=== PATIENT | female | born 1970 | race Caucasian/White ===

== ENCOUNTER 2024-09-15 19:48 | Emergency (ER) | payer MEDICARE, OTHER, SELFPAY ==
[2024-09-15 19:51] VITALS: BP 213/111
--- NOTE | 2024-09-15 21:27 | ED.GENMED ---
History of Present Illness
General
Chief Complaint: Fall
Source: family
Exam Limitations: developmental stage
Time Seen by Provider: 09/15/24 20:37
Nursing documentation reviewed up to this point in time: agreed with
History of Present Illness
History of Present Illness:
pt is a 53 y/o F
h/o developmental delay
fall today around 730 pm when in the bathtub and hit her head
witnessed by mom
has a large bump posterior scalp
inc in agitation from baseline
pt yelling/calling out
had ativan by mom at home [employer]
pt is pacing inthe room, hits her head and bites her hand
Past History
Past History
ED Past Medical History: Other (seizures, developmental delay)
Social History
Tobacco: Non-smoker
Review of Systems
Review of Systems
Allergies reviewed?: Yes
Unable to obtain full review of systems at this time due to: other (dev delay)
All Other Systems: Not applicable
Phy Exam
Physical Exam
Physical Exam:
GENERAL: awake, alert, pacing, calling out; developmental delay
hitting her head with her hand, biting Right hand
HEAD: large hematoma R posterior scalp
NECK: no midline tenderness, active ROM intact, no paraspinal muscle tenderness;
EYE: pupils equal and reactive, EOMs intact.
ENT: o/p clr, mmm. no hemotympanum
CARDIAC: Regular rate and rhythm, no edema
LUNGS: Clear breath sounds bilaterally, no acute respiratory distress, no wheezes/rales/rhonchi
ABDOMEN: Soft, without focal tenderness, no r/g, no cvat
NEUROLOGICAL: Alert and oriented, no focal neuro deficits, CN intact, 5/5 strength, sensation intact
SKIN: Warm and dry,
MUSCULOSKELETAL: No edema, well perfused.
PSYCH: Normal and appropriate interaction.
Course
Orders/Labs/Results
Orders:
Orders
09/15/24 21:29
CT Head W/o Iv Contrast Urgent
Comment:
Reason For Exam: hematoma, fall, dev delay
09/15/24 21:31
Lorazepam [Ativan] 2 mg IM NOW STA
Vital Signs
Initial and Last Documented VS:
Initial Vital Signs
Pulse Resp BP Pulse Ox
112 16 213/111 98
09/15/24 19:51 09/15/24 19:51 09/15/24 19:51 09/15/24 19:51
Last Documented Vital Signs
Pulse Resp BP Pulse Ox
105 21 173/85 98
09/15/24 22:07 09/15/24 22:07 09/15/24 22:07 09/15/24 19:51
MDM/Problems Addressed
Differential Diagnosis Includes:
head injury, ich, subdural
MDM/Problems Addressed:
53 y/o F
dev delay
here with hematoma posterior scalp after witnessed fall in shower
slightly more agitaated than normal according to mom
no LOC
no vomiting
hematoma R posterior scalp
moving neck normally
givne her severe MR, pt requires sedation for the CT scan
risk/benefit d/w mom
ativan given which did help calm her to receive the scan which wa sneg
d/c home
*Critical Care Note
Total Time (30-74mins, 75-104mins- exclusive of procedures): Not Applicable
ED Attending Note
-
Portions of this chart may have been created with voice recognition software.� Occasional wrong word or��sound alike� substitutions may have occurred due to the inherent limitations of voice recognition software.
Discharge Plan
Departure
Patient Disposition: Home (Routine Discharge)
Date of Disposition: 09/15/24
Time of Disposition: 23:08
Patient with high blood pressure during this ER visit?: Yes
Condition: Fair
Covid-19: Not Applicable
Discharge Problem:
Head injury, Hematoma
Instructions: Head Injury in Adults (DC), Contusion (DC)
Referrals:
Efra Culver DO [Family Provider] -
Activity Restrictions/Additional Instructions:
KAYLA HAD A NEGATIVE CAT SCAN
SHE LIKELY HAS A MINOR HEAD INJURY OR A CONCUSSION
TYLENOL NEEDED FOR HEADACHE OR PAIN
RETURN FOR ANY CONCERNS: CONFUSION, VOMITING, ETC.
Interventions
Interventions:
*Risk Screen - Suicide Last Done: 09/15/24 19:54
*General Assessment Last Done: 09/15/24 21:14
*Neglect/Abuse Screening Last Done: 09/15/24 19:54
*ED COVID-19 Vaccine History Last Done: 09/15/24 21:14
*Nursing Disposition Last Done: 09/15/24 23:21
ED-Musculoskeletal Assessment Last Done: 09/15/24 21:14
ED- Neurological Assessment Last Done: 09/15/24 21:14
ED-Skin Assessment Last Done: 09/15/24 21:14
Discharge Date and Time
Discharge Date/Time: 09/15/24 23:22
Print Language: [place]
[2024-09-15] MEDS: ATIVAN 2 MG IM (21:43)
[2024-09-15 22:07] VITALS: BP 173/85
[2024-09-15 22:10] VITALS: BMI 33.6
== END 2024-09-15 23:22 | disposition home or self-care (01) ==
LOC: EMR 19:48
PROVIDERS: EMERGENCY PHYSICIAN Emergency Medicine; FAMILY PHYSICIAN Family Medicine
DX: S00.03XA Contusion of scalp, initial encounter (principal); W18.2XXA Fall in (into) shower or empty bathtub, initial encounter; R62.50 Unspecified lack of expected normal physiological development in childhood
CPT/HCPCS: 96372; 99284; 70450